=== PATIENT | male | born 1965 | race Caucasian/White ===

== ENCOUNTER 2019-03-25 17:38 | Observation (INO) | payer BC ==
[~2019-03-25] VITALS: Ht 175.3 cm; Wt 97.9 kg
[2019-03-25 18:22] VITALS: BP 138/81
[2019-03-25] MEDS ORDERED: LOSA100T14 PO (18:31)
[2019-03-25] MEDS ORDERED: FENO160T PO (18:31)
[2019-03-25] MEDS ORDERED: DOXY100T PO (18:31)
[2019-03-25 18:45] VITALS: BP 141/88
[2019-03-25 19:56] LABS: BASOPHILS # (AUTO) 0.01 x10^3/uL (0-0.1); BASOPHILS % (AUTO) 0 % (0-1); EOSINOPHILS % (AUTO) 0 % (1-7); LYMPHOCYTES # (AUTO) 1.29 x10^3/uL (1-3.4); LYMPHOCYTES % (AUTO) 15 % (22-44); MD NO; MEAN CORPUSCULAR HEMOGLOBIN 30.4 pg (27.5-34.5); MEAN CORPUSCULAR HGB CONC 33.5 g/dL (33.2-36.2); MEAN CORPUSCULAR VOLUME 90.6 fL (81-97); MEAN PLATELET VOLUME 10.3 fL (7.4-10.4); MONOCYTES # (AUTO) 0.07 x10^3/uL (0.2-0.8); MONOCYTES % (AUTO) 1 % (2-9); NEUTROPHILS # (AUTO) 7.33 x10^3/uL (1.8-6.8); NEUTROPHILS % (AUTO) 84 % (42-75); PLATELET COUNT 158 x10^3/uL (130-400); RED BLOOD COUNT 5.31 x10^6/uL (4.38-5.82); RED CELL DISTRIBUTION WIDTH 14.3 % (9.4-14.8)
[2019-03-25 20:00] LABS: ALANINE AMINOTRANSFERASE 57 U/L (12-78); ALBUMIN 3.8 g/dL (3.4-5.0); ANION GAP 9 mmol/L (5-15); CALCIUM 9.3 mg/dL (8.5-10.1); CHLORIDE 106 mmol/L (98-107); CREATININE 1.21 mg/dL (0.7-1.3)
[2019-03-25 20:05] LABS: ALKALINE PHOSPHATASE 43 U/L (45-117); TOTAL PROTEIN 7.4 g/dL (6.4-8.2); TROPONIN I < 0.015 ng/mL (0.000-0.045)
[2019-03-25 20:08] LABS: BILIRUBIN,TOTAL 0.4 mg/dL (0.2-1.0)
[2019-03-25] MEDS ORDERED: LOSARTAN 100 MG TAB PO SCH (21:00)
[2019-03-25] MEDS ORDERED: ACETAMINOPHEN 325 MG TABLET PO PRN (21:00)
[2019-03-25] MEDS ORDERED: POLYETHYLENE GLYCOL 17 GM PACKET PO PRN (21:00)
[2019-03-25] MEDS ORDERED: GUAIFENESIN/DM 200-20MG, 10ML UDC PO PRN (21:00)
[2019-03-25] MEDS ORDERED: OXYcodone/APAP 5/325MG TABLET PO PRN (21:00)
[2019-03-25] MEDS ORDERED: ONDANSETRON ODT 4 MG PO PRN (21:00)
[2019-03-25] MEDS ORDERED: FENOFIBRATE 145 MG TABLET PO SCH (21:00)
[2019-03-25] MEDS ORDERED: BISACODYL 10 MG SUPP PR PRN (21:00)
[2019-03-25] MEDS: SODIUM CHLORIDE FLUSH 10ML SYR IVF SCH (21:00)
[2019-03-25] MEDS ORDERED: ALBUTEROL SULFATE 2.5 MG/3 ML ONE (22:51)
[2019-03-25] MEDS ORDERED: ALBUTEROL SULFATE 2.5 MG/3 ML NPPB PRN (23:00)
[2019-03-26 00:12] VITALS: BP 145/63
[2019-03-26 04:14] VITALS: BP 136/79
[2019-03-26 07:28] VITALS: BP 146/74
[2019-03-26] MEDS ORDERED: ACETAMINOPHEN 325 MG TABLET PO PRN (08:30)
[2019-03-26] MEDS ORDERED: SENNA/DOCUSATE TABLET PO SCH (09:00)
[2019-03-26] MEDS ORDERED: CARVEDILOL 3.125 MG TABLET PO SCH (09:00)
[2019-03-26] MEDS ORDERED: HEPARIN 5,000 UNITS/ML, 1ML SQ SCH (09:00)
[2019-03-26] MEDS: SODIUM CHLORIDE FLUSH 10ML SYR IVF SCH (09:07)
[2019-03-26] MEDS ORDERED: SENN-193 PO (09:52)
[2019-03-26] MEDS ORDERED: CARV3.1212 PO (09:52)
[2019-03-26] MEDS ORDERED: LOSARTAN 50MG TABLET PO SCH (21:00)
== END 2019-03-26 12:19 | disposition home or self-care (01) ==
LOC: INTOOBSV 17:54 → 4NE 17:54 → DCLOUNGE 03-26 12:10
PROVIDERS: ADMIT Hospitalist; ATTEND Internal Medicine
DX: J45.909 Unspecified asthma, uncomplicated (principal); R06.00 Dyspnea, unspecified; E78.5 Hyperlipidemia, unspecified; E11.65 Type 2 diabetes mellitus with hyperglycemia; Z79.899 Other long term (current) drug therapy
CPT/HCPCS: 36600; 71045; 71250; 80053; 83036; 84484; 85025; 93005; 94640; 96372; G0378; J1644

== ENCOUNTER 2020-11-10 13:49 | Outpatient (CLI) | payer BC ==
[~2020-11-10 13:49] MED LIST: CARV3.1212 PO; DOXY100T PO; FENO160T PO; LOSA100T14 PO; SENN-193 PO
[2020-11-10] MEDS ORDERED: LIDOCAINE 1%, 20ML ONE (13:54)
== END 2020-11-10 23:59 | disposition home or self-care (01) ==
LOC: RAD 13:49
PROVIDERS: ATTEND Nurse Practitioner
DX: R22.1 Localized swelling, mass and lump, neck (principal); C77.0 Secondary and unspecified malignant neoplasm of lymph nodes of head, face and neck
CPT/HCPCS: 38505; 76942; 88305; 88342; J3490; 10005

== ENCOUNTER 2020-11-29 09:03 | Outpatient (CLI) | payer BC | END 2020-11-29 23:59 | disposition home or self-care (01) | LOC: ROC 09:03 | PROVIDERS: ATTEND Radiology Radiation Oncology | DX: C77.0 Secondary and unspecified malignant neoplasm of lymph nodes of head, face and neck (principal); I10 Essential (primary) hypertension; I25.2 Old myocardial infarction | CPT/HCPCS: 99214; G0463 ==